=== PATIENT | female | born 1955 | race Caucasian/White ===

== ENCOUNTER 2023-07-05 22:50 | Emergency (ER) | payer MEDICARE, BC ==
[2023-07-05] MEDS ORDERED: Ketorolac 15 MG/ML SDV IVPUSH ONE (23:16)
[2023-07-05] MEDS: Ketorolac 15 MG/ML SDV IVPUSH ONE (23:25)
[2023-07-05] MEDS: Aspirin 81 MG Tab.Chew PO ONE (23:25)
[2023-07-05 23:27] LABS: BASOPHILS PERCENT AUTO 0.3 % (0.2-1.2); EOSINOPHILS ABSOLUTE AUTO 0.5 x10^3/uL (0.0-0.5); EOSINOPHILS PERCENT AUTO 3.2 % (0.0-4.0); HEMATOCRIT 35.4 % (33.0-47.0); HEMOGLOBIN 11.5 g/dL (12.0-16.0); IMMATURE GRAN ABSOLUTE AUTO 0.02 x10^3/uL (0.00-0.07); LYMPHOCYTES ABSOLUTE AUTO 2.6 x10^3/uL (1.0-4.8); LYMPHOCYTES PERCENT AUTO 18.3 % (25.0-50.0); MEAN CORPUSCULAR HEMOGLOBIN 27.7 pg (26.0-32.0); MEAN CORPUSCULAR HGB CONC 32.5 g/dL (32.0-36.0); MEAN CORPUSCULAR VOLUME 85.3 fL (78.0-93.0); MONOCYTES ABSOLUTE AUTO 0.6 x10^3/uL (0.0-0.8); MONOCYTES PERCENT AUTO 4.2 % (2.0-11.0); NEUTROPHILS ABSOLUTE AUTO 10.3 x10^3/uL (1.8-7.7); NEUTROPHILS PERCENT AUTO 73.9 % (50.0-80.0); PLATELET COUNT,PLT 312 x10^3/uL (130-400); RED BLOOD CELL COUNT 4.15 x10^6/uL (4.00-5.50)
[2023-07-05 23:42] LABS: BLOOD UREA NITROGEN,BUN 61 mg/dL (7-18); CALCIUM 9.6 mg/dL (8.5-10.1); CARBON DIOXIDE,CO2 24 mmol/L (21-32); CHLORIDE,CL 101 mmol/L (98-107); CREATININE 1.5 mg/dL (0.55-1.02); GLUCOSE RANDOM 184 mg/dL (70-99); POTASSIUM,K 4.5 mmol/L (3.5-5.1); SODIUM,NA 136 mmol/L (136-145)
[2023-07-05 23:45] LABS: ANION GAP 15.5 mmol/L (5-15); ESTIMATED GFR 38 mL/min (>=60)
[2023-07-06 00:41] VITALS: PULSE 88
[2023-07-06] MEDS: oxyCODONE 5 MG Tab PO ONE (00:41)
[2023-07-06 00:56] VITALS: BP 154/70
[2023-07-06] MEDS: Take Home: Acetaminophen/oxyCODONE 325-5 MG, 5 Tab Pack PO ONE (01:18)
== END 2023-07-06 01:21 | disposition home or self-care (01) ==
LOC: VM.ED 22:50
DX: R07.89 Other chest pain (principal); I10 Essential (primary) hypertension; E78.00 Pure hypercholesterolemia, unspecified; E11.9 Type 2 diabetes mellitus without complications; Z88.6 Allergy status to analgesic agent; Z88.8 Allergy status to other drugs, medicaments and biological substances; Z79.82 Long term (current) use of aspirin; Z79.4 Long term (current) use of insulin; Z79.899 Other long term (current) drug therapy
CPT/HCPCS: 36415; 71045; 80048; 84484; 85025; 93005; 93010; 96374; 99284; 99285-25; A9270-GY; J1885